=== PATIENT | male | born 1955 | race Caucasian/White ===

== ENCOUNTER 2017-11-14 12:05 | Inpatient (IN) | payer OTHER ==
[2017-11-14 12:36] LABS: ADD MAN DIFF? NO
[2017-11-14 12:37] LABS: WHITE BLOOD COUNT 6.7 10^3/ul (4.8-10.8)
[2017-11-14 12:37] LABS: BASOPHIL # 0.1 10^3/ul (0.0-0.1); EOSINOPHILS # 0.1 10^3/ul (0.0-0.5); HEMATOCRIT 44.8 % (42.0-52.0); HEMOGLOBIN 15.5 g/dl (14.0-18.0); LYMPHOCYTES # 1.5 10^3/ul (0.8-2.9); MEAN CORPUSCULAR HEMOGLOBIN 29.9 pg (29.0-33.0); MEAN CORPUSCULAR HGB CONC 34.6 g/dl (32.0-37.0); MEAN CORPUSCULAR VOLUME 86.5 fl (82.0-101.0); MEAN PLATELET VOLUME 9.4 fl (7.4-10.4); MONOCYTE # 0.4 10^3/ul (0.3-0.9); MONOCYTES % 6.1 % (0.0-11.0); NEUTROPHIL # 4.7 10^3/ul (1.6-7.5); NEUTROPHILS % 69.6 % (39.0-77.0); PLATELET COUNT 281 10^3/UL (140-415); RED BLOOD COUNT 5.18 10^6/ul (4.70-6.10); RED CELL DISTRIBUTION WIDTH 12.4 % (11.5-14.5)
[2017-11-14 12:54] LABS: ANION GAP 14 (8-16); BLOOD UREA NITROGEN 13 mg/dl (7-20); CALCIUM 9.7 mg/dl (8.4-10.2); CARBON DIOXIDE 28 mmol/L (21-31); CHLORIDE 104 mmol/L (97-110); CREATININE 0.91 mg/dl (0.61-1.24); GLUCOSE 138 mg/dl (70-220); POTASSIUM 3.8 mmol/L (3.5-5.1); SODIUM 142 mmol/L (135-144)
[2017-11-14 13:06] LABS: TROPONIN-I < 0.012 ng/ml (0.000-0.120)
[2017-11-14] MEDS: KETOROLAC 30 MG INJ IV (13:06)
[2017-11-14] MEDS: HYDROCODONE/APAP (10/325) TAB PO (13:57)
[2017-11-14] MEDS: NITROGLYCERIN 2% 1 GM OINT PKT TD (15:11)
[2017-11-14] MEDS: ASPIRIN 325 MG TAB PO (15:11)
[2017-11-14] MEDS ORDERED: HYDROCODONE/APAP (5/325) TAB PO (16:00)
[2017-11-14] MEDS ORDERED: DOCUSATE SODIUM 100 MG CAP PO (16:00)
[2017-11-14] MEDS ORDERED: NACL 0.9% 3 ML SYG IV (16:00)
[2017-11-14] MEDS ORDERED: ACETAMINOPHEN 325 MG TAB PO (16:00)
[2017-11-14] MEDS ORDERED: ONDANSETRON 4 MG INJ IV (16:00)
[2017-11-14] MEDS ORDERED: MAGNESIUM HYDROXIDE 30ML CUP PO (16:00)
[2017-11-14] MEDS ORDERED: morphine 2 MG INJ IV (16:00)
[2017-11-14] MEDS ORDERED: NITROGLYCERIN (SL) 0.4 MG TAB SL (16:00)
[2017-11-14] MEDS ORDERED: ZOLPIDEM 5 MG TAB PO (16:00)
[2017-11-14 17:25] LABS: TROPONIN-I 0.194 ng/ml (0.000-0.120)
[2017-11-14 18:54] LABS: CREATINE KINASE 345 IU/L (23-200)
[2017-11-14 19:07] LABS: CK INDEX 5.9
[2017-11-14 19:10] LABS: TROPONIN-I 0.739 ng/ml (0.000-0.120)
[2017-11-14] MEDS: ATORVASTATIN 80 MG TAB PO (22:05)
[2017-11-14] MEDS: TAMSULOSIN (SR) 0.4 MG CAP PO (22:05)
[2017-11-14] MEDS: ENOXAPARIN 100 MG/ML SYG SC (22:09)
[2017-11-14 22:55] LABS: CREATINE KINASE 513 IU/L (23-200)
[2017-11-14 23:08] LABS: CK INDEX 7.5
[2017-11-15 01:14] LABS: CREATINE KINASE 590 IU/L (23-200)
[2017-11-15 01:26] LABS: CK INDEX 7.6
[2017-11-15 03:49] LABS: ADD MAN DIFF? NO
[2017-11-15 04:08] LABS: HEMOGLOBIN A1C 5.4 % (0-5.9); WHITE BLOOD COUNT 8.7 10^3/ul (4.8-10.8)
[2017-11-15 04:08] LABS: BASOPHIL # 0.1 10^3/ul (0.0-0.1); BASOPHILS % 0.7 % (0.0-2.0); EOSINOPHILS # 0.1 10^3/ul (0.0-0.5); EOSINOPHILS % 1.5 % (0.0-7.0); HEMATOCRIT 39.6 % (42.0-52.0); HEMOGLOBIN 13.9 g/dl (14.0-18.0); LYMPHOCYTES # 2.1 10^3/ul (0.8-2.9); LYMPHOCYTES % 23.9 % (15.0-51.0); MEAN CORPUSCULAR HEMOGLOBIN 30.5 pg (29.0-33.0); MEAN CORPUSCULAR HGB CONC 35.1 g/dl (32.0-37.0); MEAN CORPUSCULAR VOLUME 86.8 fl (82.0-101.0); MEAN PLATELET VOLUME 9.8 fl (7.4-10.4); MONOCYTE # 0.8 10^3/ul (0.3-0.9); MONOCYTES % 9.5 % (0.0-11.0); NEUTROPHIL # 5.6 10^3/ul (1.6-7.5); NEUTROPHILS % 64.2 % (39.0-77.0); PLATELET COUNT 275 10^3/UL (140-415); RED BLOOD COUNT 4.56 10^6/ul (4.70-6.10); RED CELL DISTRIBUTION WIDTH 12.8 % (11.5-14.5)
[2017-11-15 04:10] LABS: PROTIME 13.3 Sec (11.9-14.9)
[2017-11-15 04:11] LABS: PARTIAL THROMBOPLASTIN TIME 33.2 Sec (23.0-35.0)
[2017-11-15 04:12] LABS: ANION GAP 12 (8-16); BLOOD UREA NITROGEN 20 mg/dl (7-20); CALCIUM 9.4 mg/dl (8.4-10.2); CARBON DIOXIDE 27 mmol/L (21-31); CHLORIDE 105 mmol/L (97-110); CHOLESTEROL 197 mg/dl (100-200); CREATININE 1.12 mg/dl (0.61-1.24); GLUCOSE 112 mg/dl (70-220); HDL CHOLESTEROL 39 mg/dl (30-78); LDL CHOLESTEROL,CALCULATED 112 mg/dl; MAGNESIUM 2.1 mg/dl (1.7-2.5); PHOSPHORUS 5.2 mg/dl (2.5-4.9); POTASSIUM 3.7 mmol/L (3.5-5.1); SODIUM 140 mmol/L (135-144); TRIGLYCERIDES 229 mg/dl (0-149)
[2017-11-15 04:15] LABS: PHOSPHORUS 5.2 mg/dl (2.5-4.9)
[2017-11-15] MEDS: DIAZEPAM 5 MG TAB PO (08:00)
[2017-11-15] MEDS: DIPHENHYDRAMINE 50 MG CAP PO (08:00)
[2017-11-15] MEDS: LOSARTAN 50 MG TAB PO (08:34)
[2017-11-15] MEDS: SOD CHLORIDE 0.9% 1,000 ML IV ×3 (08:49→20:51)
[2017-11-15] MEDS ORDERED: LIDOCAINE 1% (MDV) 20 ML INJ (15:26)
[2017-11-15] MEDS ORDERED: FENTAnyl 50 MCG/ML VIAL (15:26)
[2017-11-15] MEDS ORDERED: MIDAZOLAM 1 MG/ML 2 ML INJ (15:26)
[2017-11-15] MEDS ORDERED: SOD CHLORIDE 0.9% 500 ML (15:26)
[2017-11-15] MEDS ORDERED: HEPARIN 1000 UNITS/ML 10 ML INJ (15:26)
[2017-11-15] MEDS ORDERED: NITROGLYCERIN (IC) 100 MCG/ML INJ (15:26)
[2017-11-15] MEDS ORDERED: IODIXANOL LOCM 100 ML BTL ×2 (15:26→17:47)
[2017-11-15] MEDS ORDERED: VERAPAMIL 5 MG INJ (15:27)
[2017-11-15] MEDS ORDERED: IOHEXOL 350MG/ML 50 ML BTL (16:58)
[2017-11-15] MEDS ORDERED: EPTIFIBATIDE 100 ML IV (17:30)
[2017-11-15] MEDS: EPTIFIBATIDE 20 MG INJ IV ×2 (17:30)
[2017-11-15] MEDS ORDERED: TICAGRELOR 90 MG TABLET (18:02)
[2017-11-15] MEDS: EPTIFIBATIDE 100 ML IV (18:12)
[2017-11-15 20:08] LABS: ADD MAN DIFF? NO
[2017-11-15 20:10] LABS: WHITE BLOOD COUNT 8.9 10^3/ul (4.8-10.8)
[2017-11-15 20:10] LABS: BASOPHIL # 0.1 10^3/ul (0.0-0.1); BASOPHILS % 0.8 % (0.0-2.0); EOSINOPHILS # 0.2 10^3/ul (0.0-0.5); EOSINOPHILS % 1.8 % (0.0-7.0); HEMOGLOBIN 14.3 g/dl (14.0-18.0); LYMPHOCYTES # 2.5 10^3/ul (0.8-2.9); LYMPHOCYTES % 27.9 % (15.0-51.0); MEAN CORPUSCULAR VOLUME 88.2 fl (82.0-101.0); MEAN PLATELET VOLUME 9.8 fl (7.4-10.4); MONOCYTE # 0.8 10^3/ul (0.3-0.9); MONOCYTES % 8.6 % (0.0-11.0); NEUTROPHIL # 5.4 10^3/ul (1.6-7.5); NEUTROPHILS % 60.6 % (39.0-77.0); PLATELET COUNT 239 10^3/UL (140-415); RED BLOOD COUNT 4.76 10^6/ul (4.70-6.10)
[2017-11-15] MEDS: ATORVASTATIN 80 MG TAB PO (20:52)
[2017-11-15] MEDS: TAMSULOSIN (SR) 0.4 MG CAP PO (20:52)
[2017-11-16 05:23] LABS: ADD MAN DIFF? NO
[2017-11-16 05:27] LABS: WHITE BLOOD COUNT 8.1 10^3/ul (4.8-10.8)
[2017-11-16 05:27] LABS: BASOPHIL # 0.1 10^3/ul (0.0-0.1); BASOPHILS % 0.9 % (0.0-2.0); EOSINOPHILS # 0.2 10^3/ul (0.0-0.5); EOSINOPHILS % 2.7 % (0.0-7.0); LYMPHOCYTES # 1.8 10^3/ul (0.8-2.9); LYMPHOCYTES % 22.3 % (15.0-51.0); MEAN CORPUSCULAR HEMOGLOBIN 29.9 pg (29.0-33.0); MEAN CORPUSCULAR HGB CONC 34.1 g/dl (32.0-37.0); MEAN CORPUSCULAR VOLUME 87.6 fl (82.0-101.0); MEAN PLATELET VOLUME 9.8 fl (7.4-10.4); MONOCYTE # 0.8 10^3/ul (0.3-0.9); MONOCYTES % 9.4 % (0.0-11.0); NEUTROPHIL # 5.2 10^3/ul (1.6-7.5); NEUTROPHILS % 64.5 % (39.0-77.0); PLATELET COUNT 250 10^3/UL (140-415); RED BLOOD COUNT 4.68 10^6/ul (4.70-6.10); RED CELL DISTRIBUTION WIDTH 12.7 % (11.5-14.5)
[2017-11-16 05:52] LABS: CHOLESTEROL 178 mg/dl (100-200)
[2017-11-16 05:52] LABS: CHOL/HDL RATIO 4.9 RATIO; HDL CHOLESTEROL 36 mg/dl (30-78); LDL CHOLESTEROL,CALCULATED 97 mg/dl; TRIGLYCERIDES 223 mg/dl (0-149)
[2017-11-16 05:58] LABS: ANION GAP 10 (8-16); BLOOD UREA NITROGEN 21 mg/dl (7-20); CARBON DIOXIDE 25 mmol/L (21-31); CHLORIDE 108 mmol/L (97-110); CREATININE 0.91 mg/dl (0.61-1.24); GLUCOSE 110 mg/dl (70-220); POTASSIUM 3.7 mmol/L (3.5-5.1); SODIUM 139 mmol/L (135-144)
[2017-11-16] MEDS: SOD CHLORIDE 0.9% 1,000 ML IV (06:32)
[2017-11-16] MEDS: ASPIRIN 81 MG TAB PO (08:15)
[2017-11-16] MEDS: LOSARTAN 50 MG TAB PO (08:15)
[2017-11-16] MEDS: TICAGRELOR 90 MG TABLET PO (08:17)
[2017-11-16] MEDS: INFLUENZA VIRUS VACCINE 0.5 ML (DISPENSING) IM* (15:16)
== END 2017-11-16 15:35 | disposition home or self-care (01) | DRG 247 ==
LOC: E/R 12:05 → TEL 15:26 → ICU 11-15 18:31
PROC: 027034Z Dilation of Coronary Artery, One Artery with Drug-eluting Intraluminal Device, Percutaneous Approach (ICD-10-PCS; principal; 2017-11-15 15:29)
PROC: B211YZZ Fluoroscopy of Multiple Coronary Arteries using Other Contrast (ICD-10-PCS; 2017-11-15 15:29)
DX: I21.4 Non-ST elevation (NSTEMI) myocardial infarction (principal); I25.10 Atherosclerotic heart disease of native coronary artery without angina pectoris; I10 Essential (primary) hypertension; N40.0 Benign prostatic hyperplasia without lower urinary tract symptoms
CPT/HCPCS: 36415; 71045; 80048; 80061; 82550; 82553; 83036; 83735; 84100; 84484; 85025; 85610; 85730; 87081; 90686; 93005; 93306; 93454; 96374; 99285-25; G0378

== ENCOUNTER 2017-12-12 05:17 | Emergency (ER) | payer OTHER ==
[2017-12-12 05:51] LABS: ADD MAN DIFF? NO
[2017-12-12 05:55] LABS: BASOPHIL # 0.1 10^3/ul (0.0-0.1); BASOPHILS % 0.9 % (0.0-2.0); EOSINOPHILS # 0.3 10^3/ul (0.0-0.5); EOSINOPHILS % 4.3 % (0.0-7.0); HEMATOCRIT 40.8 % (42.0-52.0); HEMOGLOBIN 14.2 g/dl (14.0-18.0); LYMPHOCYTES # 2.3 10^3/ul (0.8-2.9); LYMPHOCYTES % 30.8 % (15.0-51.0); MEAN CORPUSCULAR HEMOGLOBIN 29.9 pg (29.0-33.0); MEAN CORPUSCULAR HGB CONC 34.8 g/dl (32.0-37.0); MEAN CORPUSCULAR VOLUME 85.9 fl (82.0-101.0); MEAN PLATELET VOLUME 9.8 fl (7.4-10.4); MONOCYTE # 0.6 10^3/ul (0.3-0.9); MONOCYTES % 7.4 % (0.0-11.0); NEUTROPHIL # 4.2 10^3/ul (1.6-7.5); NEUTROPHILS % 56.5 % (39.0-77.0); PLATELET COUNT 251 10^3/UL (140-415); RED BLOOD COUNT 4.75 10^6/ul (4.70-6.10); RED CELL DISTRIBUTION WIDTH 12.2 % (11.5-14.5)
[2017-12-12 05:55] LABS: WHITE BLOOD COUNT 7.5 10^3/ul (4.8-10.8)
[2017-12-12 06:44] LABS: ALANINE AMINOTRANSFERASE 70 IU/L (13-69); ALBUMIN 4.3 g/dl (3.3-4.9); ALBUMIN/GLOBULIN RATIO 1.38; ALKALINE PHOSPHATASE 135 IU/L (42-121); ANION GAP 13 (5-13); ASPARTATE AMINO TRANSFERASE 65 IU/L (15-46); BILIRUBIN,INDIRECT 0.3 mg/dl (0-1.1); BILIRUBIN,TOTAL 0.3 mg/dl (0.2-1.3); BLOOD UREA NITROGEN 12 mg/dl (7-20); CALCIUM 8.8 mg/dl (8.4-10.2); CARBON DIOXIDE 22 mmol/L (21-31); CHLORIDE 107 mmol/L (97-110); CREATININE 0.73 mg/dl (0.61-1.24); Estimated GFR > 60 mL/min (>60); GLUCOSE 115 mg/dl (70-220); LIPASE 117 U/L (23-300); POTASSIUM 4.2 mmol/L (3.5-5.1); SODIUM 142 mmol/L (135-144); TOTAL PROTEIN 7.4 g/dl (6.1-8.1)
[2017-12-12 09:17] LABS: TROPONIN-I < 0.012 ng/ml (0.000-0.120)
== END 2017-12-12 18:12 | disposition home or self-care (01) ==
LOC: E/R 05:17
DX: K80.20 Calculus of gallbladder without cholecystitis without obstruction (principal); I10 Essential (primary) hypertension
CPT/HCPCS: 36415; 74181; 76705; 80053; 83690; 84484; 85025; 93005; 99285-25